=== PATIENT | female | born 1980 | race Two or more races ===

== ENCOUNTER → 2016-09-17 | Outpatient (CLI) | payer OTHER ==
--- NOTE | ~2016-09-17 | MY6 ---
[facility] A Service of [facility] & [facility] RADIOLOGY TEXT RESULTS PATIENT: NATALYA DEJESUS LOCATION: [facility] : [birth year] UNIT #: [id number] AGE: [address]: JENNIFER MONCADA MD SEX: F ORDER DR: [id number] [facility]. [place], [place] [address] [id number] O MR#: [id number] Acc #: [id number] NAME: NATALYA DEJESUS : 1980 SEX: F STUDY DATE/TIME: 09/17/2016 9:29 UNIT: [facility] ROOM: STUDY DESCRIPTION: MY Mammogram Dx Dig Oh Attending Physician: Jennifer Moncada M.D. Referring Physician: Jennifer Moncada M.D. Ordering Physician: Jennifer Moncada M.D. Primary Care Physician: Jennifer Moncada M.D. MEDICAL IMAGING REPORT This report is preliminary unless electronic signature is present EXAM Diagnostic mammogram, 09/17 INDICATION 36-year-old who reports bilateral breast tenderness as well as nodularity in the upper outer left breast. FINDINGS Digital CC, MLO and ML views of both breasts were obtained in addition, left exaggerated CC view was obtained as well as left spot compression MLO views. Study is reviewed with an FDA-approved CAD device. This is a baseline exam. Breast parenchyma is heterogeneously dense. No dominant masses or suspicious microcalcifications are seen on either side. Ultrasound was performed of both breasts. The right breast was imaged from 7 o'clock to 9 o'clock. The left upper hemisphere was imaged as well. Ultrasound shows normal fibroglandular breast tissue. No masses or cysts are identified. Findings were discussed with the patient at the time of her examination today. IMPRESSION Benign bilateral mammogram with negative bilateral targeted breast ultrasound. Continued clinical followup of breast pain recommended. Routine yearly mammographic screening recommended beginning at age 40 or sooner if clinically indicated. Patients over the age of 40 are entered into a reminder system with target due date for the next mammogram. A result letter will also be sent to the patient. [facility] A Service of [facility] & [facility] RADIOLOGY TEXT RESULTS PATIENT: NATALYA DEJESUS LOCATION: [facility] : [birth year] UNIT #: [id number] AGE: [address]: JENNIFER MONCADA MD SEX: F ORDER DR: SHAYADS: 2 Benign Finding Dictated by... Bladimir Lowe Jr., M.D. THIS IS AN ELECTRONICALLY VERIFIED REPORT Bladimir Lowe Jr., M.D. at 09/17/2016 4:47 PM Elyse TD: 09/17/2016 11:11 JOB #: [id number] MEDICAL IMAGING REPORT Page 1 of 1 COPY
--- NOTE | ~2016-09-17 | US17 ---
[facility] A Service of [facility] & [facility] RADIOLOGY TEXT RESULTS PATIENT: NATALYA DEJESUS LOCATION: [facility] : 82 UNIT #: [id number] AGE: [address]: JENNIFER MONCADA MD SEX: F ORDER DR: [id number] [facility] [address]. [place], [place] [address] [id number] O MR#: [id number] Acc #: [id number] NAME: NATALYA DEJESUS : 1980 SEX: F STUDY DATE/TIME: 09/17/2016 10:12 UNIT: [facility] ROOM: STUDY DESCRIPTION: US Breast Bilateral Attending Physician: Jennifer Moncada M.D. Referring Physician: Jennifer Moncada M.D. Ordering Physician: Jennifer Moncada M.D. Primary Care Physician: Jennifer Moncada M.D. MEDICAL IMAGING REPORT This report is preliminary unless electronic signature is present EXAM Bilateral breast ultrasound 09/17/2016 INDICATION Bilateral breast pain with palpable abnormality in the left breast noted by the patient. FINDINGS For a full report, see the mammogram report dated 09/17/2016. BIRADS: 2 Benign finding Dictated by... Bladimir Lowe Jr., M.D. THIS IS AN ELECTRONICALLY VERIFIED REPORT Bladimir Lowe Jr., M.D. at 09/17/2016 4:47 PM BEAU/miguel TD: 09/17/2016 11:13 JOB #: [id number] MEDICAL IMAGING REPORT Page 1 of 1 COPY
== END | disposition home or self-care (01) ==
LOC: CMAM 09:00
DX: N64.4 Mastodynia (principal)
CPT/HCPCS: 76641; G0204